=== PATIENT | female | born 1960 | race Caucasian/White ===

== ENCOUNTER 2016-11-30 10:43 | Inpatient (IN) | payer MEDICARE, OTHER ==
[~2016-11-30] VITALS: Ht 157.5 cm; Wt 73.0 kg
--- NOTE | ~2016-11-30 | CO ---
Unit #: [id number] #: [id number] Patient: DAISY TORRES [id number] [place], [place] [address] [id number] I MR#: [id number] NAME: DAISY TORRES ROOM: 329 Age: 56 Sex: F Admission Date: 11/30/2016 : 1960 Attending Physician: Humza Sevilla M.D. Primary Care Physician: Veronica Acosta M.D. Consultation Date: 12/03/2016 CONSULTATION REPORT DISCUSSION Ms. Daisy Torres is a 56-year-old female, seen as a followup in room 329, bed 1 on 12/03/2016 at [facility]. The patient was admitted with overdose of insulin on 11/30/2016. The patient continues to be sad, dysphoric, anxious, withdrawn. Currently has a sitter, dressed casually in hospital attire, lying comfortably. Mood and affect, labile. Still having suicidal ideation. Denied any plans, still feeling sad, depressed, anxious. Denied any hallucination. REVIEW OF SYSTEMS Complete review of system is unremarkable. MENTAL STATUS EXAMINATION Vital signs; temperature 98.3, heart rate 72, respirations 16, blood pressure 118/56, oxygen saturation 100%. General appearance; the patient dressed casually in hospital attire, lying comfortably in bed. The patient has a sitter. Attention span and concentration, fair. Speech, regular rate. Oriented in time, place, and person. Mood and affect, sad and depressed. Thought process, coherent. Thought content, the patient reported having suicidal ideation, denied any plans; feeling of hopelessness, worthlessness. Denied any auditory or visual hallucination. Recent and remote memory, fair. Language, intact. Fund of knowledge, fair. Insight and judgment, fair to slightly impaired. DIAGNOSES Psychiatric: Major depressive disorder, recurrent, severe, F33.2; cannabis abuse, moderate, F12.20. ASSESSMENT/PLAN 1. Supportive psychotherapy and psychoeducation provided to the patient. 2. Educated about benefits and side effects of medication and course and prognosis of illness. 3. Advised to continue with current treatment on the inpatient unit and transfer the patient to [facility] once the patient is medically stable. Please feel free to call if any questions, telephone #[phone]. Dictated by... Manav Monte/wander TD: 12/03/2016 23:53 Unit #: [id number] #: [id number] Patient: DAISY TORRES JOB #: [id number] CONSULTATION REPORT Page 1 of 1 X Garland Lares MD X CONSULTATION REPORT
--- NOTE | ~2016-11-30 | CO ---
Unit #: [id number] #: [id number] Patient: DAISY TORRES [id number] [facility]. [place], [place] [address] [id number] I MR#: [id number] NAME: DAISY TORRES ROOM: [facility] Age: 56 Sex: F Admission Date: 11/30/2016 : 1960 Attending Physician: Humza Sevilla Primary Care Physician: Veronica Acosta M.D. Consultation Date: 12/01/2016 CONSULTATION REPORT REASON FOR CONSULTATION Followup. DISCUSSION Ms. Daisy Torres is a 56-year-old white female, seen on 12/01/2016. The patient has a sitter, seen in room 629 bed 1 at [facility]. The patient was somewhat anxious, nervous. Mood was labile. Reports that she has no appetite, having lot of anxiety. The patient reports that she was smoking marijuana every day in the morning to help with anxiety and as well as with appetite. The patient became agitated and aggressive this morning, received p.r.n. Ativan this morning. The patient is still having suicidal ideation, currently has a sitter. Complete review of systems is unremarkable. The patient's blood sugar is 140. The patient's vital signs; temperature is 98.6, pulse 71, respirations 16, blood pressure 129/74, oxygen saturation 100%. MENTAL STATUS EXAMINATION General appearance; the patient dressed casually, lying comfortably in bed, seemed somewhat restless, anxious. Attention span and concentration, fair. Speech, rapid in rate and somewhat circumstantial. Oriented in time, place, and person. Mood and affect, labile. Thought process, circumstantial. Thought content, the patient reported having suicidal ideation, mood lability, anxiety, agitation, irritability, severe anxiety. Recent and remote memory, fair to slightly impaired. Language, fair. Fund of knowledge, fair to slightly impaired. Insight and judgment, fair to slightly impaired. DIAGNOSES Psychiatric: Bipolar mood disorder, recurrent, mixed, moderate to severe, F31.9; cannabis abuse, moderate, F12.20; anxiety disorder, not otherwise specified, F40.01. ASSESSMENT AND PLAN 1. Supportive psychotherapy and psychoeducation provided to the patient. 2. Educated about benefits and side effects of medication and course and prognosis of illness. 3. Advised Zyprexa 5 mg b.i.d. and Vistaril 25 mg t.i.d. for mood stabilization and anxiety, advised one dose now. We will continue to follow. Please feel free to call if any questions telephone [phone]. Dictated by... Garland Lares M.D. Unit #: [id number] #: [id number] Patient: DAISY TORRES DAY/wander TD: 12/02/2016 18:57 JOB #: [id number] CONSULTATION REPORT Page 1 of 1 X Garland Lares MD X CONSULTATION REPORT
--- NOTE | ~2016-11-30 | CO ---
Unit #: [id number] #: [id number] Patient: DAISY TORRES [id number] [facility] [address] [facility]. [place], [place] [address] [id number] I MR#: [id number] NAME: DAISY TORRES ROOM: 329 Age: 56 Sex: F Admission Date: 11/30/2016 : 1960 Attending Physician: Humza Sevilla Primary Care Physician: Veronica Acosta M.D. Consultation Date: 11/30/2016 CONSULTATION REPORT REASON FOR CONSULTATION Depression, suicidal ideation, overdose. HISTORY OF PRESENT ILLNESS Ms. Daisy Torres is a 56-year-old white female, seen in room 329, bed 1 on the unit 3A on 11/30/2016 at [facility]. The patient reports that she is under a lot of stress, attempted suicide by taking overdose of insulin. The patient has a previous treatment at [facility] for history of depression. The patient currently feeling sad, depressed, feeling of hopelessness, worthlessness, suicidal ideation, recent suicide attempt. Denied any hallucination. Denied any use of drugs or alcohol. The patient has a sitter, made poor eye contact, tearful, sad, and depressed during interview. Still having suicidal ideation. The patient denied any homicidal ideation or any hallucination. PAST PSYCHIATRIC HISTORY Remarkable for history of previous treatment at [facility] in 2011, 2012, 2013, and last admitted in 11/2014 with a diagnosis of bipolar mood disorder, depressed, cannabis abuse, borderline personality disorder. MEDICAL HISTORY Remarkable for history of hyperglycemia, hypokalemia, bipolar mood disorder. MEDICATIONS The patient is currently on no medication at this time. FAMILY HISTORY AND SOCIAL HISTORY The patient reports that she is currently homeless since 09/2015. Poor support system. No history of abuse. Denied any use of any drugs or alcohol. The patient's urine drug screen was, however, positive for marijuana. REVIEW OF SYSTEMS Complete review of systems is unremarkable. MENTAL STATUS EXAMINATION Vital signs; temperature 99.1, heart rate 92, respiratory rate 16, blood pressure 131/72. General appearance; the patient dressed casually in hospital attire, lying comfortably in a propped up position receiving IV. Attention span and concentration, fair to poor. Speech, slow in volume with long pauses. Oriented in time, place, and person. Mood and affect, sad and depressed. Thought process, coherent. Thought content, the patient is still having suicidal ideation, denied any plan. Recent Unit #: [id number] #: [id number] Patient: DAISY TORRES suicide attempt. Denied any hallucination or any homicidal ideation. Recent and remote memory, fair. Language, intact. Fund of knowledge, fair. Insight and judgment, fair to slightly impaired. DIAGNOSES Psychiatric: Major depressive disorder, recurrent, severe, F33.2; history of bipolar mood disorder, recurrent, depressed, F31.9; cannabis abuse, moderate, F12.20. Secondary diagnosis: Deferred. Medical diagnosis: Please refer to H and P. Stressors: Psychosocial stressors. ASSESSMENT/PLAN 1. Supportive psychotherapy and psychoeducation provided to the patient. 2. Educated about benefits and side effects of medication and course and prognosis of illness. 3. Advised to continue with 72-hour hold and one-to-one monitoring and recommending the patient to be transferred to [facility] once the patient is medically cleared and stable. Please call transfer center. Please feel free to call if any questions, telephone #[phone]. Dictated by... Manav Monte/wander TD: 12/03/2016 03:45 JOB #: [id number] CONSULTATION REPORT Page 1 of 1 X Garland Lares MD X CONSULTATION REPORT
--- NOTE | ~2016-11-30 | CO ---
Unit #: [id number] #: [id number] Patient: DAISY MCCLURE [id number] [address] [address] [id number] I MR#: [id number] NAME: DAISY MCCLURE ROOM: 329 Age: 56 Sex: F Admission Date: 11/30/2016 : 1960 Attending Physician: Humza Sevilla M.D. Primary Care Physician: Veronica Acosta M.D. Consultation Date: 12/02/2016 CONSULTATION REPORT DISCUSSION Ms. Rizzo is a 56-year-old female, seen on 12/02/2016. The patient interviewed, chart reviewed, and obtained information from nursing staff. The patient seen as a followup. The patient has a sitter, still feeling sad, depressed, anxious. With her agitation, continues to have suicidal ideation. The patient still sad, depressed, withdrawn, isolative, anxious. The patient's vital signs; temperature 99.0, heart rate 75, respiratory rate 16, blood pressure 131/81, and oxygen saturation 97%. REVIEW OF SYSTEMS Complete review of system is unremarkable except as mentioned above. MENTAL STATUS EXAMINATION General appearance; the patient dressed casually, lying comfortably in bed. Attention span and concentration, fair. Speech, rapid in rate. Oriented in place and person. Mood and affect, labile. Thought process, circumstantial. Thought content, reported suicidal ideation. Denied any homicidal ideation. Guarded, paranoid, mood lability. Recent and remote memory, fair to poor. Language, fair. Fund of knowledge, fair. Insight and judgment, fair to slightly impaired. DIAGNOSES Psychiatric: Major depressive disorder, recurrent, severe, F33.2; cannabis abuse, moderate to severe, F12.20. Secondary diagnosis: Deferred. ASSESSMENT/PLAN 1. Supportive psychotherapy and psychoeducation provided to the patient. 2. Educated about benefits and side effects of medication and course and prognosis of illness. 3. Advised to continue with one-to-one monitoring and advised the patient to be transferred to [facility] for inpatient psychiatric treatment as well as medically stable. In the meantime, we will continue to follow. Dictated by... Garland Lares M.D. DAY/wander TD: 12/03/2016 02:21 JOB #: [id number] Unit #: [id number] #: [id number] Patient: DAISY MCCLURE CONSULTATION REPORT Page 1 of 1 X Garland Lares MD CONSULTATION REPORT
--- NOTE | ~2016-11-30 | EKG ---
PATIENT: DAISY MCCLURE UNIT #: [id number] Ventricular Rate: 88 BPM Atrial Rate: 88 BPM P-R Interval: 156 ms QRS Duration: 76 ms Q-T Interval: 376 ms QTC Calculation(Bezet): 454 ms P [place]: 80 degrees Calculated R [place]: 66 degrees Calculated T [place]: 19 degrees Diagnosis Line: Normal sinus rhythm Diagnosis Line: Normal ECG Diagnosis Line: When compared with ECG of 09-SEP-2013 11:15, Diagnosis Line: No significant change was found Diagnosis Line: Confirmed by PADMINI CELAAY MD ([id number]) on Diagnosis Line: 11/30/2016 2:03:18 PM INTERPRETING MD: YOMI COOMBS
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
--- NOTE | ~2016-11-30 | DS ---
Unit #: [id number] #: [id number] Patient: DAISY MCCLURE [id number] [address] [address] [id number] I MR#: [id number] NAME: DAISY MCCLURE ROOM: 329 Age: 56 Sex: F Admission Date: 11/30/2016 : 1960 Discharge Date: 12/03/2016 Attending Physician: Humza Sevilla M.D. Primary Care Physician: Veronica Acosta M.D. DISCHARGE SUMMARY PERTINENT HISTORY AND HOSPITAL COURSE The patient is a 56-year-old woman with a history of diabetes mellitus and bipolar disorder, who presents to the emergency room after an intentional overdose with insulin suicide attempt. During admission, the patient was continued on an IV dextrose drip. Her blood sugar stabilized. The IV dextrose drip was discontinued. The patient was continued on low dose sliding scale insulin coverage. She was evaluated by Psychiatry and started on Zyprexa 5 mg b.i.d. and Vistaril 25 mg t.i.d. for mood stabilization. The patient will be transferred to [facility]. DISCHARGE DIAGNOSIS Hypoglycemia secondary to intentional overdose of insulin, suicidal attempt. DISCHARGE INSTRUCTIONS The patient transferred to [facility] for admission. Dictated by... Manav Moss/wander TD: 12/07/2016 03:24 JOB #: [id number] DISCHARGE SUMMARY Page 1 of 1 X X DISCHARGE SUMMARY
[~2016-11-30 10:43] MED LIST: GLUCOPHAGE500 MG PO; HYDROCODON-ACE1 EAC5 PO; LORTAB 101 TAB 10/5 PO; LYRICA100 MG PO; NOVOLIN R100 UNITS/; ONGLYZA5 MG PO; PROTONIX PO; SOMA PO
[2016-11-30 11:07] LABS: URINE SOURCE CLEAN CATCH
[2016-11-30 11:08] LABS: BASOPHIL% 0.6 % (0-2.5); EOSINOPHIL# 0.1 X10e3 (0-0.7); EOSINOPHIL% 0.9 % (0.0-7.0); HEMATOCRIT 41.1 % (35.0-45.0); HEMOGLOBIN 13.5 gm/dL (12.0-16.0); LYMPHOCYTE# 2.1 X10e3 (1.0-3.5); LYMPHOCYTE% 29.9 % (17.0-45.0); MEAN CELL VOLUME 83.7 FL (83-96); MEAN CORPUSCULAR HEMOGLOBIN 27.5 PG (28-34); MEAN CORPUSCULAR HGB CONC 32.9 g/dL (30-36); MEAN PLATELET VOLUME 8.3 FL (6.5-11.5); MONOCYTE# 0.6 X10e3 (0-1.0); MONOCYTE% 8.4 % (3.0-12.0); NEUTROPHIL# 4.3 X10e3 (1.5-7.1); NEUTROPHIL% 60.2 % (40-75); PLATELET COUNT 240 X10e3 (140-420); RED BLOOD COUNT 4.91 X10e (3.90-5.30); RED CELL DISTRIBUTION WIDTH 14.6 % (11.0-15.5); WHITE BLOOD COUNT 7.1 X10e3 (4.0-10.5)
[2016-11-30 11:15] LABS: POC - CKMB 2.5 ng/mL (0.0-7.9); POC - TROPONIN <0.05 ng/mL (<=0.05)
[2016-11-30 11:18] LABS: DIFF IND NO
[2016-11-30 11:36] LABS: URINE APPEARANCE CLEAR; URINE BILIRUBIN NEG (NEG); URINE BLOOD NEG (NEG); URINE COLOR YELLOW; URINE GLUCOSE >1000 MG/DL (NEG); URINE KETONE NEG (NEG); URINE LEUKOCYTE ESTERASE NEG (NEG); URINE NITRATE NEG (NEG); URINE PH 6.5 (5-8); URINE PROTEIN NEG (NEG); URINE SPECIFIC GRAVITY 1.028 (1.003-1.035); URINE UROBILINOGEN 0.2 MG/DL (NEG)
[2016-11-30 11:41] LABS: CULTURE INDICATED? NO
[2016-11-30 11:53] LABS: AMPHETAMINE NEG (NEG); BARBITURATES NEG (NEG); BENZODIAZEPINES NEG (NEG); COCAINE NEG (NEG); MARIJUANA POS (NEG); OPIATES NEG (NEG); TRICYCLIC ANTIDEPRESSANTS POS (NEG); U METHADONE NEG (NEG)
[2016-11-30 12:05] LABS: ALBUMIN SERUM 4.6 g/dL (3.5-5.0); ALCOHOL BLOOD 100 mg/dL ([, 0]); ALKALINE PHOSPHATASE 97 U/L (32-92); ALT (SGPT) 14 U/L (10-40); AST (SGOT) 19 U/L (10-42); BILIRUBIN,TOTAL 0.6 mg/dL (0.2-2.0); BLOOD UREA NITROGEN 11 mg/dL (9-23); BUN/CREATININE RATIO 15.71; CALCIUM SERUM 8.9 mg/dL (8.4-10.2); CARBON DIOXIDE 26 mmol/L (22-31); CHLORIDE 106 mmol/L (100-111); CREATININE SERUM 0.7 mg/dL (0.6-1.4); GLOM FILT RATE Estimated 95.5 mL/min (>60); GLUCOSE FASTING 77 mg/dL (70-110); POTASSIUM 3.6 mmol/L (3.5-5.1); SALICYLATE <4.0 mg/dL; SODIUM 142 mmol/L (135-145)
[2016-11-30 12:07] LABS: ACETAMINOPHEN <10 ug/mL; BILIRUBIN, DIRECT <0.1 mg/dL (0.0-0.2); BILIRUBIN,INDIRECT 0.5 mg/dL (0.0-0.9)
[2016-12-01 05:09] LABS: BASOPHIL% 0.6 % (0-2.5); EOSINOPHIL# 0.1 X10e3 (0-0.7); EOSINOPHIL% 1.5 % (0.0-7.0); HEMATOCRIT 37.3 % (35.0-45.0); HEMOGLOBIN 11.9 gm/dL (12.0-16.0); LYMPHOCYTE# 1.1 X10e3 (1.0-3.5); LYMPHOCYTE% 22.4 % (17.0-45.0); MEAN CELL VOLUME 85.3 FL (83-96); MEAN CORPUSCULAR HEMOGLOBIN 27.3 PG (28-34); MEAN PLATELET VOLUME 8.5 FL (6.5-11.5); MONOCYTE# 0.5 X10e3 (0-1.0); MONOCYTE% 9.1 % (3.0-12.0); NEUTROPHIL# 3.3 X10e3 (1.5-7.1); NEUTROPHIL% 66.4 % (40-75); PLATELET COUNT 173 X10e3 (140-420); RED BLOOD COUNT 4.37 X10e (3.90-5.30); RED CELL DISTRIBUTION WIDTH 14.9 % (11.0-15.5)
[2016-12-01 05:11] LABS: DIFF IND NO
[2016-12-01 05:59] LABS: BUN/CREATININE RATIO 23.33; CALCIUM SERUM 8.4 mg/dL (8.4-10.2); CREATININE SERUM 0.6 mg/dL (0.6-1.4); GLOM FILT RATE Estimated 100.5 mL/min (>60); POTASSIUM 3.1 mmol/L (3.5-5.1)
== END 2016-12-03 21:17 | DRG 918 ==
LOC: CED 10:43 → C3A PCU 12:09 → CEDOF 12:09 → CED 12:36 → CEDOF 12:36 → C3A PCU 13:49
PROVIDERS: Emergency Medicine; Internal Medicine
DX: T38.3X2A Poisoning by insulin and oral hypoglycemic [antidiabetic] drugs, intentional self-harm, initial encounter (principal); E11.649 Type 2 diabetes mellitus with hypoglycemia without coma; R45.851 Suicidal ideations; F33.2 Major depressive disorder, recurrent severe without psychotic features; Z79.4 Long term (current) use of insulin; Z88.2 Allergy status to sulfonamides; F12.20 Cannabis dependence, uncomplicated
CPT/HCPCS: 71010; 80048; 80076; 80307; 81003; 82553; 82947; 84484; 85025; 93005; 96360; 96361; 99285; G0480; J1610; J1815; J1885; J2060; J2930

== ENCOUNTER 2016-12-03 14:54 | Inpatient (IN) | payer MEDICARE, OTHER ==
[~2016-12-03] VITALS: Ht 162.6 cm; Wt 69.9 kg
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
--- NOTE | ~2016-12-03 | HP ---
Unit #: [id number] #: [id number] Patient: DAISY MCCLURE [id number] [place] [address] [id number] I MR#: [id number] NAME: DAISY MCCLURE ROOM: 32 Age: 56 Sex: F Admission Date: 12/03/2016 : 1960 Attending Physician: Jose Corona M.D. Admitting Physician: Jose Corona M.D. Primary Care Physician: Veronica Acosta M.D. HISTORY AND PHYSICAL HISTORY OF PRESENT ILLNESS Daisy is a 56-year-old female admitted on 12/03/2016 for depression and psychosis. She reports attempted suicide by overdosing on her insulin. PAST MEDICAL HISTORY 1. Obesity. 2. Type 2 diabetes. 3. Fibromyalgia. PAST SURGICAL HISTORY She reports multiple surgeries but is unable to provide details. ALLERGIES Sulfa, codeine, morphine and pseudoephedrine. SOCIAL HISTORY No tobacco use. Does report a history of alcohol use and occasional marijuana use. She is currently and living with her son. FAMILY HISTORY Noncontributory. REVIEW OF SYSTEMS CONSTITUTIONAL: No fever or chills. HEENT: Denies any sore throat, ear pain or runny nose. CARDIOVASCULAR: Denies chest pain, irregular heart rhythm or palpitations. CHEST: Denies shortness of breath or cough. No hemoptysis. GASTROINTESTINAL: Denies nausea, vomiting, diarrhea or chronic constipation. ENDOCRINE: Denies history of increased thirst or urination. No recent significant weight loss or gain. GENITOURINARY: Denies dysuria, frequency, or hematuria. SKIN: Denies any rashes. HEMATOLOGIC: Denies history of increased bleeding or bruising. MUSCULOSKELETAL: Denies any hot, swollen joints. No generalized muscle pain. NEUROLOGIC: Denies problems with vision or speech. No frequent, severe headaches. No numbness, tingling or weakness in any extremities. Denies loss of bladder or bowel control. CURRENT MEDICATIONS 1. Metformin. Unit #: [id number] #: [id number] Patient: DAISY MCCLURE 2. Vistaril. 3. Protonix. 4. Zyprexa. PHYSICAL EXAMINATION GENERAL: Alert, oriented, in no acute distress. VITAL SIGNS: Blood pressure 128/63, heart rate 80, temperature 98.2, respirations 16. HEIGHT: 5 feet 4. WEIGHT: 154 pounds. SKIN: Warm and dry without rash or lesion. HEENT: Normocephalic. TMs not viewed. Oral and nasal passages clear. Conjunctivae clear. PERRLA. EOMs intact. NECK: Supple without lymphadenopathy or thyromegaly. HEART: Regular rate and rhythm without murmur. LUNGS: Clear. ABDOMEN: Soft, nontender, without masses or hepatosplenomegaly. : Not done. EXTREMITIES: No evidence of cyanosis, clubbing or edema. Moves all without focal deficit. NEUROLOGICAL: Grossly within normal limits. Cranial Nerves: II: Visual rivera are intact. III, IV AND : Extraocular movements are intact. Pupils are equal, round and reactive to light. V: Facial sensation is grossly normal. VII: Facial movements and expression are normal. VIII: Auditory acuity grossly intact. IX, X: Uvula is midline. Phonation is normal. XI: Patient shrugs shoulders and turns head normally. XII: Tongue protrudes in the midline. Sensory and Motor Function: Sensory and motor sensation is grossly normal. Motor: moves all extremities well. Coordination: Gait is normal. Deep Tendon Reflexes: Intact. IMPRESSION 1. Psychiatric admission. 2. Obesity. 3. Type 2 diabetes. 4. Fibromyalgia. RECOMMENDATIONS PSYCHIATRIC: Per psychiatrist. MEDICAL: No contraindication to participate in facility's activities. MEDICAL PROGNOSIS Good. MEDICAL CONDITION Stable. Dictated by... Shonda Basilio Unit #: [id number] #: [id number] Patient: DAISY MCCLURE TD: 12/04/2016 21:21 JOB #: [id number] HISTORY AND PHYSICAL Page 1 of 1 X JOHANA RUTLEDGE APRN X HISTORY AND PHYSICAL
--- NOTE | ~2016-12-03 | DS ---
Unit #: [id number] #: [id number] Patient: DAISY MCCLURE [id number] [place] [address] [id number] MR#: [id number] NAME: DAISY MCCLURE ROOM: P132 Age: 56 Sex: F Admission Date: 12/03/2016 : 1960 Discharge Date: 12/05/2016 Attending Physician: Jose Corona M.D. Primary Care Physician: Veronica Acosta M.D. DISCHARGE SUMMARY REASON FOR ADMISSION Daisy is a 56-year-old woman with a history bipolar disorder and borderline personality disorder, who reported multiple psychosocial stressors resulting in noncompliance with medication and an overdose on her insulin. She was admitted for stabilization. LABORATORY DATA Please see hospital chart. HOSPITAL COURSE Patient was admitted and placed on suicide precautions. Zoloft and Zyprexa were started for her bipolar disorder. Her home medications were continued after they were confirmed with her outpatient pharmacy. She was irritable and somewhat uncooperative with hospital stay and demanded discharge after 48 hours. She was interviewed by multiple staff nurse who felt she was able to give a reliable contract for safety. She was discharged in stable condition. DISCHARGE DIAGNOSIS AXIS I: Bipolar disorder depressed, history of post-traumatic stress disorder. AXIS II: Borderline personality disorder. AXIS III: Diabetes, GERD. INSTRUCTIONS The patient will follow up with [facility] and primary care physician. DISCHARGE MEDICATIONS Zoloft 50 mg daily for depression, Zyprexa 5 mg twice daily for mood stability. Vistaril 25 mg t.i.d. as needed for anxiety. Primary care medicines were Glucophage 500 g twice daily before meals for diabetes, Protonix 40 mg of GERD and NovoLog sliding scale insulin as directed for insulin control. CONDITION ON DISCHARGE Improved. PROGNOSIS Good. DIET AND ACTIVITY Ad franklin. Unit #: [id number] #: [id number] Patient: DAISY MCCLURE Dictated by... Jose Corona M.D. MRH/gz TD: 01/01/2017 07:47 JOB #: [id number] DISCHARGE SUMMARY Page 1 of 1 X Jose Corona MD DISCHARGE SUMMARY
== END 2016-12-05 11:30 | disposition home or self-care (01) | DRG 885 ==
LOC: P1S 21:36
DX: F31.9 Bipolar disorder, unspecified (principal); R45.851 Suicidal ideations; E11.9 Type 2 diabetes mellitus without complications; F43.10 Post-traumatic stress disorder, unspecified; F60.3 Borderline personality disorder; T38.3X2D Poisoning by insulin and oral hypoglycemic [antidiabetic] drugs, intentional self-harm, subsequent encounter; Z79.4 Long term (current) use of insulin; M79.7 Fibromyalgia; Z88.2 Allergy status to sulfonamides; Z88.5 Allergy status to narcotic agent; Z88.8 Allergy status to other drugs, medicaments and biological substances; E66.9 Obesity, unspecified; K21.9 Gastro-esophageal reflux disease without esophagitis
CPT/HCPCS: 82947

== ENCOUNTER 2016-12-09 18:10 | Inpatient (IN) | payer MEDICARE, OTHER ==
[~2016-12-09] VITALS: Ht 162.6 cm; Wt 69.4 kg
--- NOTE | ~2016-12-09 | PN ---
Unit #: [id number] #: [id number] Patient: DAISY TORRES [id number] [facility] [address] [place] [address] [id number] I MR#: [id number] NAME: DAISY TORRES ROOM: 63 Age: 56 Sex: F Admission Date: 12/09/2016 : 1960 Attending Physician: Jose Corona M.D. Admitting Physician: Jose Corona M.D. Primary Care Physician: Manav Zhang PROGRESS NOTES DATE 12/11/2016 DISCUSSION Ms. Torres is sleeping in a seclusion room this morning due to having a new roommate assigned to her last night who "snores like a freight train." The patient was also extremely angry and irritable, stating that she is unable to make it to the regular communal bathroom and demanding access to her own bathroom which is not currently available due to unit restrictions and safety needs. The patient was quite hostile, angry, and profane this morning during the interview, demanding transfer to another hospital but not able to contract for safety for discharge from our facility. She is disheveled in appearance and slightly malodorous. She is alert and fully oriented and her thought processes are somewhat circumstantial. There is no clear evidence of psychosis but a great deal of anger. She continues to be unable to contract for safety in the outpatient setting. ASSESSMENT Bipolar disorder. PLAN We will continue current medications and try to work with the patient on meeting her personal needs. Dictated by... Manav Bruner/damari TD: 12/12/2016 11:08 JOB #: [id number] Unit #: [id number] #: [id number] Patient: DAISY TORRES PROGRESS NOTES Page 1 of 1 X Jose Corona MD PROGRESS NOTE
--- NOTE | ~2016-12-09 | HP ---
Unit #: [id number] #: [id number] Patient: DAISY MCCLURE [id number] [place] [address] [id number] I MR#: [id number] NAME: DAISY MCCLURE ROOM: 63 Age: 56 Sex: F Admission Date: 12/09/2016 : 1960 Attending Physician: Jose Corona M.D. Admitting Physician: Jose Corona M.D. Primary Care Physician: Veronica Acosta M.D. HISTORY AND PHYSICAL Daisy is a 56-year-old female admitted on 12/09/[address] [place] [address] for psychosis. She had a recent admission on 12/03/2016. I reviewed the history and physical from that admission and there are no changes. Dictated by... Shonda Basilio/jannette TD: 12/10/2016 18:43 JOB #: [id number] HISTORY AND PHYSICAL Page 1 of 1 X JOHANA RUTLEDGE APRN HISTORY AND PHYSICAL
--- NOTE | ~2016-12-09 | PN ---
Unit #: [id number] #: [id number] Patient: DAISY MCCLURE [id number] [facility] [address] [place] [address] [id number] MR#: [id number] NAME: DAISY MCCLURE ROOM: 63 Age: 56 Sex: F Admission Date: 12/09/2016 : 1960 Attending Physician: Jose Corona M.D. Admitting Physician: Jose Corona M.D. Primary Care Physician: Manav Zhang PROGRESS NOTES DATE 12/12/2016 DISCUSSION Daisy is slightly better today with less irritability, less agitation, and continued complaints of anxiety. She is alert and fully oriented today. Her memory and concentration are intact. Her thought processes are logical with no active psychosis. ASSESSMENT Bipolar depressed. PLAN We will provide Vistaril p.r.n. for anxiety and ibuprofen is requested for the patient's pain. Dictated by... Manav Bruner/damari TD: 12/17/2016 09:32 JOB #: [id number] MITZI PROGRESS NOTES Page 1 of 1 X Jose Corona MD X PROGRESS NOTE
--- NOTE | ~2016-12-09 | PA ---
Unit #: [id number] #: [id number] Patient: DAISY MCCLURE [id number] [place] [address] [id number] I MR#: [id number] NAME: DAISY MCCLURE ROOM: P263 Age: 56 Sex: F Admission Date: 12/09/2016 : 1960 Date of Assessment: Attending Physician: Jose Corona M.D. Admitting Physician: Jose Corona M.D. Primary Care Physician: Veronica Acosta M.D. PSYCHIATRIC ASSESSMENT INFORMANTS Patient, partially reliable; OLOP, reliable. CHIEF COMPLAINT Suicidal ideation and psychosis. HISTORY OF PRESENT ILLNESS Daisy is a 56-year-old woman, just discharged from this hospital several days ago, who reports that her home environment has become increasingly chaotic and she had been erratically compliant with her medications. She had a rather rambling presentation with a lot of circumstantial information, and quasi-paranoia. She could not contract for safety in the outpatient setting and was readmitted for further stabilization. PAST PSYCHIATRIC HISTORY Please see previous assessments. As noted, the patient was discharged from this facility. She has multiple other admissions to this facility as well. FAMILY PSYCHIATRIC HISTORY Unremarkable. SOCIAL HISTORY The patient is and is currently living with two of her adult sons. She is on long-term disability for psychiatric and medical conditions. PAST MEDICAL HISTORY The patient had several medical problems documented in her medical records. MEDICATIONS Please see MAR. ALLERGIES No known medication allergies. SUBSTANCE USE HISTORY The patient has a history of substance dependence and has been in rehab in the past. MENTAL STATUS EXAMINATION The patient presented as a mildly disheveled woman, who appeared older than her stated age. She was generally cooperative with the examination, Unit #: [id number] #: [id number] Patient: DAISY MCCLURE although appear somewhat watchful and paranoid. Her mood was anxious and irritable with a congruent affect. She was alert and fully oriented. Memory and concentration were impaired. Thought processes were somewhat circumstantial and she continued to report paranoia and suicidal ideation. Insight and judgment were fair. Fund of knowledge and abstraction were fair. ASSETS AND LIABILITIES The patient is familiar with local resources and presents voluntarily for treatment. Liabilities include apparent noncompliance with medication and multiple stressors. ADMITTING DIAGNOSES AXIS I: Bipolar depressed, posttraumatic stress disorder. AXIS II: Borderline personality disorder. AXIS III: Multiple. AXIS IV: AXIS V: PSYCHIATRIC PLAN The patient was admitted and placed on suicide precautions. Her home medications for medical conditions will be confirmed and restarted. We will increase Zoloft to 100 mg daily and Zyprexa to 5 mg morning and 10 mg at bedtime to improve mood and mood control. She will enroll in psychotherapy groups, and activities. TREATMENT GOALS Resolution of psychosis, improvement in insight, and improvement in coping skills. DISCHARGE PLANNING Follow up with [facility]. ESTIMATED LENGTH OF STAY 5 days. Dictated by... Jose Corona M.D. LATANYA/wander TD: 12/11/2016 01:33 JOB #: [id number] PSYCHIATRIC ASSESSMENT Page 1 of 1 X Jose Corona MD X PSYCHIATRIC ASSESSMENT
--- NOTE | ~2016-12-09 | DS ---
Unit #: [id number] #: [id number] Patient: DAISY MCCLURE [id number] [place] [address] [id number] MR#: [id number] NAME: DAISY MCCLURE ROOM: 63 Age: 56 Sex: F Admission Date: 12/09/2016 : 1960 Discharge Date: 12/13/2016 Attending Physician: Jose Corona M.D. Primary Care Physician: Veronica Acosta M.D. DISCHARGE SUMMARY REASON FOR ADMISSION Daisy is a 56-year-old woman with a history of bipolar disorder who was just discharged from the hospital several days ago. She reports a chaotic home environment and she was erratically compliant with her medications. She appeared partially paranoid with circumstantiality and was admitted for stabilization when she could not contract for safety outside of the hospital. DIAGNOSTIC STUDIES LABORATORY DATA: Please see hospital chart. HOSPITAL COURSE Patient was admitted and placed on suicidal precautions. Zoloft was increased to 100 mg daily and Zyprexa to 5 in the morning and 10 mg at bedtime for mood control. The patient had some agitation and irritable episodes especially with a roommate and with her peers but did not require any intramuscular treatments or seclusion or restraint. Her mood gradually brightened and Vistaril was admitted to control anxiety, which was effective. On the date of discharge she continued to be free of suicidal ideation. DISCHARGE DIAGNOSES Corning I Bipolar depressed, Posttraumatic stress disorder, chronic. Corning II Borderline personality disorder. Corning III Multiple. Corning IV Corning V FOLLOWUP CARE Instruction to patient, followup with [facility] and primary care physician. DISCHARGE MEDICATIONS 1. Zoloft 100 mg daily for depression. 2. Zyprexa 5 mg in the morning and 10 mg at bedtime for mood stability. 3. Vistaril 50 mg every 6 hours as needed for anxiety. 4. Trazodone 50 mg at bedtime is needed for insomnia. 5. Glucophage, Protonix, NovoLog insulin and Motrin were continued from her primary care physician and unchanged. CONDITION AT DISCHARGE Unit #: [id number] #: [id number] Patient: DAISY MCCLURE Improved. PROGNOSIS Fair to good. DIET AND ACTIVITY Ad franklin. Dictated by... Manav Bruner TD: 12/18/2016 11:55 JOB #: [id number] DISCHARGE SUMMARY Page 1 of 1 X Jose Corona MD DISCHARGE SUMMARY
--- NOTE | ~2016-12-09 | CO ---
Unit #: [id number] #: [id number] Patient: DAISY MCCLURE [id number] [place] [address] [id number] MR#: [id number] NAME: DAISY MCCLURE ROOM: 63 Age: 56 Sex: F Admission Date: 12/09/2016 : 1960 Attending Physician: Jose Corona M.D. Primary Care Physician: Veronica Acosta M.D. Consultation Date: 12/10/2016 CONSULTATION REPORT HISTORY OF PRESENT ILLNESS Marylu has a history of type 2 diabetes and elevated blood pressures. Since admission, her blood pressures have been about 140s over 80s. She also has had blood sugars of 258 and 77. On previous admission, she reported attempted suicide by overdosing on her insulin. On those admissions, she had blood sugars as low as 50s. She is on glyburide and takes NovoLog at home. She has no complaints. PHYSICAL EXAMINATION CARDIAC: Regular rate and rhythm. No murmurs, gallops, or rubs. RESPIRATORY: Clear to auscultation bilaterally. ASSESSMENT AND PLAN 1. Type 2 diabetes. We will continue with her glyburide and sliding scale insulin. Please notify if blood sugars are consistently greater than 200 or lower than 70. 2. Hypertension. We will add clonidine 0.1 mg p.o. q.12 hours p.r.n. for blood pressures greater than 140/90. The patient was instructed to follow up with primary care provider. Dictated by... Shonda Basilio/wander TD: 12/11/2016 03:31 JOB #: [id number] CONSULTATION REPORT Page 1 of 1 X JOHANA RUTLEDGE APRN X CONSULTATION REPORT
[2016-12-10 09:56] LABS: BASOPHIL% 0.8 % (0-2.5); EOSINOPHIL# 0.1 X10e3 (0-0.7); EOSINOPHIL% 2.3 % (0.0-7.0); HEMATOCRIT 39.7 % (35.0-45.0); HEMOGLOBIN 13.2 gm/dL (12.0-16.0); LYMPHOCYTE# 1.5 X10e3 (1.0-3.5); LYMPHOCYTE% 28.5 % (17.0-45.0); MEAN CELL VOLUME 84.2 FL (83-96); MEAN CORPUSCULAR HGB CONC 33.2 g/dL (30-36); MEAN PLATELET VOLUME 8.7 FL (6.5-11.5); MONOCYTE# 0.4 X10e3 (0-1.0); MONOCYTE% 8.1 % (3.0-12.0); NEUTROPHIL# 3.3 X10e3 (1.5-7.1); NEUTROPHIL% 60.3 % (40-75); PLATELET COUNT 252 X10e3 (140-420); RED BLOOD COUNT 4.72 X10e (3.90-5.30); RED CELL DISTRIBUTION WIDTH 14.7 % (11.0-15.5); WHITE BLOOD COUNT 5.4 X10e3 (4.0-10.5)
[2016-12-10 10:03] LABS: DIFF IND NO
[2016-12-10 10:08] LABS: URINE APPEARANCE CLEAR; URINE BILIRUBIN NEG (NEG); URINE BLOOD NEG (NEG); URINE COLOR YELLOW; URINE GLUCOSE >1000 MG/DL (NEG); URINE KETONE TRACE (NEG); URINE LEUKOCYTE ESTERASE NEG (NEG); URINE NITRATE NEG (NEG); URINE PROTEIN NEG (NEG); URINE SPECIFIC GRAVITY 1.038 (1.003-1.035)
[2016-12-10 10:15] LABS: ALBUMIN SERUM 4.5 g/dL (3.5-5.0); BILIRUBIN,TOTAL 0.8 mg/dL (0.2-2.0); BUN/CREATININE RATIO 16.25; CALCIUM SERUM 9.3 mg/dL (8.4-10.2); CREATININE SERUM 0.8 mg/dL (0.6-1.4); GLOM FILT RATE Estimated 81.3 mL/min (>60); POTASSIUM 4.1 mmol/L (3.5-5.1); PROTEIN TOTAL SERUM 7.3 g/dL (6.0-8.3)
[2016-12-10 10:38] LABS: AMPHETAMINE NEG (NEG); BARBITURATES NEG (NEG); BENZODIAZEPINES NEG (NEG); COCAINE NEG (NEG); MARIJUANA POS (NEG); OPIATES NEG (NEG); TRICYCLIC ANTIDEPRESSANTS POS (NEG); U METHADONE NEG (NEG)
== END 2016-12-13 16:00 | disposition home or self-care (01) | DRG 885 ==
LOC: P2L 20:50
PROVIDERS: Psychiatry & Neurology Psychiatry
DX: F31.9 Bipolar disorder, unspecified (principal); E11.9 Type 2 diabetes mellitus without complications; I10 Essential (primary) hypertension; F43.10 Post-traumatic stress disorder, unspecified; F60.3 Borderline personality disorder
CPT/HCPCS: 80053; 80307; 81003; 82947; 84703; 85025